=== PATIENT | male | born 1975 | race Caucasian/White ===

== ENCOUNTER 2024-10-14 12:17 | Outpatient (CLI) | payer OTHER, SELFPAY ==
--- OUTSIDE RECORDS SUMMARY | 2024-10-14 12:23 | XMS_ITS | Patient Health Record ---
Author Organization [facility] Address [address] [place], [place] [id number] Care Team Providers Care Planning Intern Name Role Phone FranciscoalineLISHA julioEMILIANAYULY Unavailable [phone] Tatianna Sow Unavailable Unavailable Reason For Referral No Information Plan Of Treatment No Information Insurance Providers Payer Name Payer Address Payer Phone Subscriber Number Group Number Insured Name Patient Relationship to Insured Coverage Start Date Coverage End Date [facility] [address] [place] [address] [id number] ALICE PAULINO Self - patient is the insured
--- NOTE | 2024-10-14 12:31 | ECG_ITS ---
Test Date: 2024-10-14 12:52:34 Measurements Intervals [place] Rate: 70 P: 15 MO: 163 QRS: 16 QRSD: 94 T: 34 QT: 378 QTc: 410 Interpretive Statements SINUS RHYTHM No previous ECG available for comparison Electronically Signed On 10-14-2024 22:15:31 CDT by Lexie Gray M.D.
[2024-10-14 13:47] LABS: INR 1.0; Prothrombin Time 13.3 Seconds (11.1-14.7)
[2024-10-14 13:57] LABS: Partial Thromboplastin Time 28.4 Seconds (22.3-36.8)
== END 2024-10-14 12:18 | disposition home or self-care (01) ==
PROVIDERS: Visit Provider Urology
DX: Z01.818 Encounter for other preprocedural examination (principal); N20.0 Calculus of kidney; I10 Essential (primary) hypertension
CPT/HCPCS: 36415; 85610; 85730; 87086; 93005

== ENCOUNTER 2024-10-18 00:19 | Day surgery (SDC) | payer OTHER, SELFPAY ==
--- NOTE | 2024-10-08 14:57 | SUR.PREOP ---
Report to the Outpatient Waiting Room, entrance under the green pavilion located off [facility], at time ___06____ on date ____10/18/24___. Planned Procedure Time: ____729____.? Time changes happen often and if your time is changed the preop area will call you the afternoon before. - You and your visitor will be asked to self-screen and do not enter if you have any COVID symptoms. Please call surgeon if you need to reschedule. - A mask is optional within the hospital at this time. Patients may have clear liquids (water, carbonated beverages, clear teas, apple juice) until 3 hours prior to surgery with a maximum of 20 ounces. - NO CLEAR LIQUIDS AFTER 0430 - No food from midnight until time of surgery and no smoking, or chewing tobacco (or any form of nicotine). No chewing gum, candy or mints. - Infants may have breast milk until 4 hours before surgery, infant formula 6 hours prior to surgery. - Children will be allowed to drink immediately following surgery.? If applicable, please bring a bottle or sippy cup to assist with drinking. Juice, water, soda, and popsicles are readily available.? For infants on formula, please bring formula the day of surgery.? Pacifiers are allowed. Take only the following medications with a SIP of water on the morning of surgery: N/A DO NOT STOP ANY OF YOUR OTHER PRESCRIPTION MEDICATIONS PRIOR TO SURGERY EXCEPT THE FOLLOWING Hold all vitamins and supplements for 3 days per anesthesiologist. Medications to discontinue per physician N/A Date to take last dose Please no make-up, nail malagasy, hairspray, perfume, deodorant, or body powder the day of surgery.? No jewelry (including any body piercings) or valuables the day of surgery, leave them at home.? Please take a shower or bath the night before, or the morning of, surgery with an antibacterial soap.? Wear comfortable, loose fitting clothing.? Children are encouraged to wear pajamas. - Jewelry must be removed prior to entering the operating room.? Rings and piercings that are not removed may be cut off. - The hospital will not accept responsibility for valuables.? - Please leave all valuables, including medications, at home the day of surgery. If you are going home after surgery, a licensed tour driver must drive you home.? - NO public transportation without another adult if you receive anesthesia. - We recommend that an adult stay with you for 24 hours following discharge. - We also recommend that you do not drive, make important decision, drink alcoholic beverages, or take any drugs that were not prescribed by your health care provider for at least 24 hours after your discharge time. For Pediatric surgeries, we recommend two adults accompany the child home. Follow any additional instructions given to you from your surgeon. Telephone instructions given to ALICE PAULINO and asked if any additional questions and then verbalized understanding. Patient advised to call surgeon office or pre surgery nurse liaison [phone] if any additional questions.
[2024-10-08 15:30] VITALS: BMI 40.0
--- NOTE | ~2024-10-18 | XR_ITS ---
Exam: Abdomen 1V HISTORY: LEFT SIDE STONE PRE LITHO COMPARISON: None TECHNIQUE: Supine images of the abdomen FINDINGS: Bowel gas pattern is non-obstructive. There is no free air or deep sulci. Multiple calcifications are seen, projecting over the bilateral kidneys. 3.5 mm, projecting to the right of midline. 8.6 mm, projecting over the upper pole of the left kidney. 9.4 mm, projecting over the interpolar region of the left kidney. 8.9 mm, projecting over the interpolar region to lower pole of the left kidney. 22 mm, projecting to the right of midline, likely within the gallbladder. Visualized portions of the lung bases are unremarkable. Bones and soft tissues are unremarkable. IMPRESSION: Nonspecific, nonobstructive bowel gas pattern. Multiple stones projecting over the bilateral kidneys, as detailed above. Reviewed, dictated and finalized at location A.
--- OUTSIDE RECORDS SUMMARY | 2024-10-18 00:21 | XMS_ITS | Patient Health Record ---
Author Organization [facility] Address [address] [place], [place] [id number] Care Team Providers Care Neonatal Doctor Name Role Phone FranciscoalineLISHA julioEMILIANAYULY Unavailable Tatianna Sow Unavailable Unavailable Reason For Referral No Information Plan Of Treatment No Information Insurance Providers Payer Name Payer Address Payer Phone Subscriber Number Group Number Insured Name Patient Relationship to Insured Coverage Start Date Coverage End Date [facility] [address] [place] [address] [id number] ALICE PAULINO Self - patient is the insured
--- OUTSIDE RECORDS SUMMARY | 2024-10-18 00:21 | XMS_ITS | Patient Health Record ---
Author Organization [facility] Address [address] [facility] [address] [place], [place] [id number] Support Name Relationship Address Phone ALICE PAULINO Guarantor Unknown [phone] Reason For Referral No Information Plan Of Treatment No Information
[2024-10-18 06:20] VITALS: BP 129/67; PULSE 67; RESP 18; TEMP 36.9; O2SAT 98
--- NOTE | 2024-10-18 06:50 | WPDANESEPPF ---
Anes - Initial Pre Proc Eval Procedure: Operation Date: 10/18/24 07:30 Proposed Procedures p Left Extracorporeal Shock Wave Lithotripsy - Cecilio Dawkins MD Date/Time: 10/18/24 06:50 Surgeon: Cecilio Dawkins MD Pre Op Diagnosis: left renal stone Patient Data Age: 49 Gender: M Height: 1.91 m Weight: 153.5 kg Last Vital Signs Temp 36.9 C 10/18/24 06:20 Pulse 67 10/18/24 06:20 Resp 18 10/18/24 06:20 BP 129/67 10/18/24 06:20 Pulse Ox 98 10/18/24 06:20 O2 Del Method Room Air 10/18/24 06:20 Allergies Allergy/AdvReac Type Severity Reaction Status Date / Time No Known Allergies Allergy Unverified 10/18/24 06:12 Home Medications ?Medication ?Instructions ?Recorded ?Confirmed ?Type atorvastatin 40 mg tablet 40 mg PO QPM 10/08/24 10/18/24 History lisinopril 20 mg tablet 20 mg PO QHS 10/08/24 10/18/24 History Patient hx anesthesia problems: none Family hx anesthesia problems: none Results Review: All pre-operative results and documents have been reviewed as part of the pre-operative evaluation. [facility] Past Medical History Medical History (Updated 10/18/24 @ 06:51 by Carloz Adkins MD) HTN (hypertension) Morbid obesity Surgical History Surgical History (Updated 10/18/24 @ 06:51 by Carloz Adkins MD) S/P gastric sleeve procedure Social History Social History Smoking status: Never smoker Alcohol intake: current Living arrangements: with family Spiritual care concerns: No Anes - Eval Final PreProcedure Day of Procedure 10/18/24 06:50 Patient weight: morbidly obese Heart: regular rate and rhythm Lungs: clear to auscultation Airway: Mallampati scale class II Neurological: alert and oriented Last oral intake: >/= 8 hours ASA classification: III Emergent: no Anesthetic plan: proceed Anesthesia type and monitoring: general LMA and standard monitoring Results Review: All pre-operative results and documents have been reviewed as part of the pre-operative evaluation. Informed Consent: The patient's anesthetic plan and its attendant risks and benefits were discussed with the patient/family/POA. Questions were solicited and answers provided to the satisfaction of the patient/family/POA.
--- NOTE | 2024-10-18 07:16 | PM.IMHP ---
H&P: HPI History of Present Illness Date/Time: 10/18/24 07:16 Chief Complaint: left renal calculus Narrative: 49 yr old male with left renal calculi here for lithotripsy. Review of Systems Review of Systems: All systems reviewed & are unremarkable except as noted in HPI and below PMFSH Past Medical History Medical History (Updated 10/18/24 @ 07:18 by Cecilio Dawkins MD) HTN (hypertension) Morbid obesity Surgical History Surgical History (Updated 10/18/24 @ 06:51 by Carloz Adkins MD) S/P gastric sleeve procedure Social History Social History Smoking status: Never smoker Alcohol intake: current Living arrangements: with family Spiritual care concerns: No Meds Home Medications and Allergies Home Medications ?Medication ?Instructions ?Recorded ?Confirmed ?Type atorvastatin 40 mg tablet 40 mg PO QPM 10/08/24 10/18/24 History lisinopril 20 mg tablet 20 mg PO QHS 10/08/24 10/18/24 History Allergies Allergy/AdvReac Type Severity Reaction Status Date / Time No Known Allergies Allergy Unverified 10/18/24 06:12 Vital Signs Vital Signs - 24 hr 10/18/24 06:20 Temperature 36.9 C Pulse Rate 67 Respiratory Rate 18 Blood Pressure 129/67 Pulse Oximetry 98 Oxygen Delivery Room Air Assessment and Plan Assessment and plan (1) Left renal stone: Code(s): N20.0 - Calculus of kidney Status: Acute Assessment and Plan: eswl of left renal calculus
--- NOTE | 2024-10-18 07:18 | WPDHPUPDATE1 ---
History and Physical Update Update Date/Time: 10/18/24 07:18 History and Physical has been reviewed, including an updated exam of the patient. There are NO changes in the patient's condition. Risks, benefits, and alternatives have been discussed and questions answered. Patient agrees to proceed with procedure.
[2024-10-18] MEDS: ceFAZolin 3 GM/D5W 100 ML 100 ML IVPB (07:25)
--- NOTE | 2024-10-18 08:09 | W.PM.PROC2 ---
Procedure Note - Detailed Date of Procedure 10/18/24 Pre-op Diagnosis left renal stone Post-op Diagnosis Same Procedure Performed Lithotripsy of left renal calculi Surgeon Cecilio Dawkins MD Anesthesia General Description of Procedure Patient was taken the OR correctly identified. Once anesthesia was obtained the stone in the left renal kidney was localized. Two thousand five hundred shocks were given the stone. There appeared to be good fragmentation. He was taken recovery stable condition. He will follow-up in 7-10 days with KUB. This completes dictation. Please send a copy of op note to my office Estimated Blood Loss 0 Drains No Packing No Pathology None sent Complications No immediate complications Condition Stable Disposition PACU
[2024-10-18 08:13] VITALS: BP 112/67; PULSE 80; RESP 12; TEMP 36.1; O2SAT 95
[2024-10-18] MEDS: LACTATED RINGERS 1,000 ML 30 ML IV CONT (08:13)
[2024-10-18 08:25] VITALS: BP 113/66; PULSE 76; RESP 16; O2SAT 99
[2024-10-18 08:40] VITALS: BP 118/74; PULSE 80; RESP 18; O2SAT 95
[2024-10-18 08:48] VITALS: BP 126/72; PULSE 76; RESP 18
[2024-10-18 09:15] VITALS: BP 132/77; PULSE 67; RESP 18
== END 2024-10-18 09:28 | disposition home or self-care (01) ==
PROVIDERS: Visit Provider Urology
PROC: (CPT 50590; principal; 2024-10-18 07:30)
DX: N20.0 Calculus of kidney (principal)
CPT/HCPCS: 50590; 74018; J0690; J1100; J2250; J2405; J2704; J3010; J7120

== ENCOUNTER 2024-10-24 13:32 | Outpatient (CLI) | payer OTHER, SELFPAY ==
--- NOTE | ~2024-10-24 | XR_ITS ---
XR abdomen/kub 1V 10/24/2024 13:44 Indication: Renal stones Procedure: KUB Comparison: 10/18/2024 Findings: There are bilateral renal stones. There are gallstones. Nonobstructive bowel gas pattern. T here is mild lower thoracic and lumbar spondylosis. Impression: 1: Bilateral nephrolithiasis. 2: Cholelithiasis. Reviewed, dictated and finalized at location B. Impression: 1: Bilateral nephrolithiasis. 2: Cholelithiasis.
--- OUTSIDE RECORDS SUMMARY | 2024-10-24 13:36 | XMS_ITS | Encounter Summary ---
Author Organization [facility] Address [address] [place] [address] Care Team Providers Care Quality Improvement Manager Name Role Phone Cj Sow MD Primary Care Provider [phone] Cj Sow MD Primary Care Provider [phone] Cj Sow MD Primary Care Provider [phone] Cj Sow MD Primary Care Provider [phone] Cj Sow MD Primary Care Provider [phone] Cj Sow MD Primary Care Provider [phone] Cj Sow MD Primary Care Provider [phone] Cj Sow MD Primary Care Provider [phone] Cj Sow MD Primary Care Provider [phone] Cj Sow MD Primary Care Provider [phone] [place] Mills [facility] Primary Care Provider [phone] Juan Daniel Dodd DO Primary Care Provider Diane Mcneil [facility] Primary Care Provider + Encounter Details Date Type Department Care Team (Late st Contact Info) Description 07/02/2001 Abstract [facility] Conversion , Generic Conversion, Social History Tobacco Use Types Packs/Day Years Used Date Smoking Tobacco: Never Assessed Sex and Gender Information Value Date Recorded Sex Assigned at Male 06/14/2024 6:09 AM AIR INTELLIGENCE OFFICER Legal Sex Male 4:12 PM CDT Gender Identity Male 04/20/2021 11:54 AM AIR INTELLIGENCE OFFICER Sexual Orientation Straight 04/20/2021 11 :54 AM AIR INTELLIGENCE OFFICER documented as of this encounter Plan of Treatment Not on file documented as of this encounter Visit Diagnoses Not on filedocumented in this encounter Care Teams Quality Improvement Manager Relationship Specialty Start Date End Date Cj Sow MD [address] [place] [address] PCP - General 06/10/16 07/30/18 Cj Sow MD [address] [place] [address] PCP - General 03/11/16 06/09/16 Cj Sow MD [address] [place] [address] PCP - General 02/22/16 03/10/16 Cj Sow MD [address] [place] [address] PCP - General 01/14/16 02/21/16 Cj Sow MD [address] [place] [address] PCP - General 12/31/15 01/13/16 Cj Sow MD [address] [place] [address] PCP - General 12/21/15 12/30/15 Cj Sow MD [address] [place] [address] PCP - General 12/08/15 12/20/15 Cj Sow MD [address] [place] [address] PCP - General 11/30/15 12/07/15 Cj Sow MD [address] [place] [address] PCP - General 11/27/15 11/29/15 Cj Sow MD [address] [place] [address] PCP - General 11/12/15 11/26/15 Eugene Mills FNP [address] [place] [address] PCP - General NURSE PRACTITIONER 07/31/18 01/17/21 Juan Daniel Dodd DO [address] [place] [address] PCP - General FAMILY PRACTICE 01/18/21 05/19/22 Diane Mcneil, AUTO REFINISHER- [address] [place] [address] PCP - General NURSE PRACTITIONER 05/20/22 documented as of this encounter
--- OUTSIDE RECORDS SUMMARY | 2024-10-24 13:36 | XMS_ITS | Encounter Summary ---
Author Organization [facility] Address [facility] [place] [address] Care Team Providers Care Manager Membership Name Role Phone Cj Sow MD Primary Care Provider [phone] Eugene Mills [facility] Primary Care Provider [phone] Juan Daniel Dodd DO Primary Care Provider Diane Mcneil [facility] Primary Care Provider + Encounter Details Date Type Department Care Team (Late st Contact Info) Description 06/07/2017 Abstract [facility] Clin[facility] Conversion Dominic Rosenbaum MD [address] [place] [address] Social History Tobacco Use Types Packs/Day Years Used Date Smoking Tobacco: Never Assessed Sex and Gender Information Value Date Recorded Sex Assigned at Male 06/14/2024 6:09 AM INSURANCE CLAIMS ASSISTANT Legal Sex Male 4:12 PM CDT Gender Identity Male 04/20/2021 11:54 AM INSURANCE CLAIMS ASSISTANT Sexual Orientation Straight 04/20/2021 11 :54 AM INSURANCE CLAIMS ASSISTANT documented as of this encounter Miscellaneous Notes * Letter - Dominic Rosenbaum MD - 06/07/2017 12:00 AM CST 06-07-2017 Almas Iglesias [address] [place] [address] : 1975 Lab Order: CMP; Lipid Panel E78.5: Hyperlipidemia, unspecified Normal [x] Stat [] Fasting Electronically Signed By: Dominic Rosenbaum MD RANCE CLAIMS ASSISTANT documented in this encounter Plan of Treatment Not on file documented as of this encounter Visit Diagnoses Not on filedocumented in this encounter Care Teams Manager Membership Relationship Specialty Start Date End Date Cj Sow MD [address] [place] [address] PCP - General 06/10/16 07/30/18 Eugene Mills FNP [address] [facility] [address] [place] [address] PCP - General NURSE PRACTITIONER 07/31/18 01/17/21 Juan Daniel Dodd DO [address] [facility] [address] [place] [address] PCP - General FAMILY PRACTICE 01/18/21 05/19/22 Diane Mcneil FNP- [address] [place], [place] [id number] PCP - General NURSE PRACTITIONER 05/20/22 documented as of this encounter
--- OUTSIDE RECORDS SUMMARY | 2024-10-24 13:36 | XMS_ITS | Clinical Summary ---
Author Organization [facility] Address [address] [place] [address] Care Team Providers Care Inspector Dials Name Role Phone Diane Mcneil [facility] Primary Care Provider + Allergies Active Allergy Reactions Criticality Noted Date Comments Seasonal Unknown 06/19/2017 Medications Multiple Vitamin (MULTIVITAMIN ADULT OR) Take by mouth daily. Active lisinopril (PRINIVIL) 20 MG tabletIndications:E ssential hypertension Take 1 tablet (20 mg total) by mouth daily. 90 tablet 2 4 Active atorvastatin (LIPITOR) 40 MG tabletIndications:H yperlipidemia, unspecified hyperlipidemia type Take 1 tablet (40 mg total) by mouth daily. 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 Kidney stones 11/12/2015 Obesity 05/12/2014 Asthma (HHS/HCC) 03/05/2012 Other and unspecified hyperlipidemia 03/05/2012 Resolved Problems Problem Noted Date Diagnosed Date Resolved Date Screening for colon cancer 07/13/2023 0 07/17/2023 Screening for colon cancer 07/13/2023 0 08/21/2023 Screening for colon cancer 07/13/2023 0 09/18/2023 Acute gout 09/30/2015 09/11/2020 Encounters Date Type Department Care Team Description 08/26/2024 6:47 AM CDT - 08/26/2024 11:59 PM CDT Hospital Encounter [facility] [address] [place] [address] Cecliio Dawkins MD Discharge Disposition: Home or Self Care (Routine Discharge) 08/26/2024 Travel from Last 3 Months Immunizations Immunization Administration Dates Next Due Dtap/Hep B/Ipv 11/13/1981, 8,11/17/1976,1976,06/02/1976 Fluzone Adult - >Age 3 (Pref illed Syringe) 04/23/2019(Deferred: Patient Refused) Hepatitis B 09/04/1998,01/02/1998,11/14/1997 DEEPA ([employer]) COVID-19 AD26 VACCINE 0.5 ML IM SUSP 11/06/2020 MMR (Generic) 09/27/1977 Opv 11/01/1983, 8,11/17/1976,1976,06/02/1976 Td 11/01/1983 Tdap (Generic) 10/22/2007 Family History Medical History Relation Comments Hypertension Brother No Known Problems Father No Known Problems Maternal Aunt [place] Maternal Grandfather No Known Problems Maternal Grandmother No Known Problems Maternal Uncle Breast Cancer Mother Hypertension Mother No Known Problems Paternal Aunt Lung Cancer Paternal Grandfather smoker No Known Problems Paternal Grandmother No Known Problems Paternal Uncle PKU Son Relation Status Comments Brother Alive Father Alive Maternal Aunt Maternal Grandfather Maternal Grandmother Maternal Uncle Mother Paternal Aunt Paternal Grandfather Paternal Grandmother Paternal Uncle Son Alive Social History Tobacco Use Types Packs/Day Years Used Date Smoking Tobacco: Never Smokeless Tobacco: Never Tobacco Cessation:Counseling Given: No Comments:non smoker Alcohol Use Standard Drinks/Week Comments Yes 10 (1 standard drink = 0.6 oz pu re alcohol) AUDIT-C Answer Date Recorded Frequency of Alcohol Consumption Never 08/10/2018 Average Number of Drinks Not on file 019 Frequency of Binge Drinking Not on file 06/2018 PHQ-2 Answer Date Recorded Patient Health Questionnaire-2 Score 0 03/26/2024 Sex and Gender Information Value Date Recorded Sex Assigned at Male 06/14/2024 6:09 AM RELIABILITY TECHNICIAN Legal Sex Male 4:12 PM CDT Gender Identity Male 04/20/2021 11:54 AM RELIABILITY TECHNICIAN Sexual Orientation Straight 04/20/2021 11 :54 AM RELIABILITY TECHNICIAN Last Filed Vital Signs Vital Sign Reading Time Taken Comments Blood Pressure 132/78 03/26/2024 3:45 PM RELIABILITY TECHNICIAN Pulse 57 03/26/2024 3:45 PM RELIABILITY TECHNICIAN Temperature 36.3 C (97.3 F) 03/26/2024 3:45 PM RELIABILITY TECHNICIAN Respiratory Rate 18 03/26/2024 3:45 PM RELIABILITY TECHNICIAN Oxygen Saturation 99% 03/26/2024 3:45 PM RELIABILITY TECHNICIAN Inhaled Oxygen Concentration - - Weight 155.3 kg (342 lb 6.4 oz) 03/26/2024 3:45 PM RELIABILITY TECHNICIAN Height 188 cm (6' 2) 03/26/2024 3:45 PM RELIABILITY TECHNICIAN Body Mass Index 43.96 03/26/2024 3:45 PM RELIABILITY TECHNICIAN Plan of Treatment Health Maintenance Due Date Last Done Comments Pneumococcal Vaccine: 50+ Years (1 of 2 - PCV) 1993 DTaP, Tdap and Td Vaccines (6 - Td or Tdap) 10/21/2017 10/22/2007, 11/01/1983, 11/13/1981, Additional history exists COVID-19 Vaccine (2 - season) 2023 11/06/2020 Zoster Vaccines (1 of 2) 01/25/2024 PHQ-2 (Physician [place]) 04/10/2024 03/26/2024 Annual Physical 07/05/2024 07/06/2023, 05/11, 04/16/2021 Colorectal Cancer Screening Colonoscopy (10 Years) 09/18/2033 09/19/2023, 09/19/2023, 09/19/2023 Hepatitis B Vaccines Completed 09/04/1998, 01/02/1998, 11/14/1997, Additional history exists Hepatitis C Completed 06/01/2022 Meningococcal B Vaccine Aged Out No l onger eligible based on patient's age to complete this topic Meningococcal Vaccine Aged Out No adrian skinny eligible based on patient's age to complete this topic RSV Immunizations Under 20 Months Aged Out No longer eligible based on patient's age to complete this topic Procedures Procedure Name Priority Date/Time Associated Diagnosis Comments CT ABD+PEL WO CON Routine 08/26/2024 7:0 1 AM CDT Calculus of kidney XR ABD KUB Routine 08/26/2024 7:00 AM CDT Kidney stone COLONOSCOPY Routine 09/19/2023 9:51 AM CDT HEPATITIS C ANTIBODY Routine 06/01/2022 2:00 PM RELIABILITY TECHNICIAN Need for hepatitis C screening test from Last 3 Months or Most Recently Relevant to Health Maintenance Results * CT ABD+PEL WO CON (08/26/2024 7:01 AM CDT) Anatomical Region Laterality Modality Abdomen Computed Tomogra phy 08/29/2024 9:15 AM CDT Impressions 08/29/2024 9:24 AM CDT IMPRESSION: 1. Nonobstructive nephrolithiasis bilaterally with a mild calculus burden as above. 2. Additional chronic/subtle findings as above. Ordered By: CECILIO DAWKINS Interpreted By: Todd Tilley, 08/29/2024 9:15 AM Narrative 08/29/2024 9:24 [place] [address] EXAMINATION: CT ABD+PEL WO CON INDICATIONS: Calculus of kidney COMPARISON: 10/30/2015 TECHNIQUE: Contiguous unenhanced axial CT images through the abdomen and pelvis with coronal and sagittal reformats. A dose lowering technique was used for this procedure, which may include, but is not limited to, dose reduction technique, automated exposure control, the use of iterative reconstruction, and ALARA (As Low As Reasonably Achievable) / Image Gently techniques. FINDINGS: No consolidation, effusion, or suspicious pulmonary nodule within the visualized lung bases. Heart size is normal. No pericardial effusion. 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 Lack of intravenous contrast limits evaluation of the abdominopelvic viscera and vasculature. Symmetric and uniform renal cortical attenuation with minimal symmetric and likely senescent perinephric stranding bilaterally Nonobstructive nephrolithiasis bilaterally with 2 subcentimeter right and 3 nonobstructive left renal calculi. 2 dominant clustered calculi within the left interpolar pelvis 11 mm in long axis and 4 mm in short axis measuring up to 11 mm in long axis. No obstructing calculus or hydronephrosis. No discrete renal mass. The ureters are normal in caliber without intraluminal calculus. Smooth urinary bladder distention without focal wall thickening, perivesicular stranding, or intraluminal calculus. The prostate and seminal vesicles are within normal limits. The liver, spleen, pancreas, and adrenal glands are normal in morphology and homogenous in attenuation without suspicious lesion. Multiple calcified splenic and to lesser extent hepatic granulomata. Smooth gallbladder distention with few dependent subcentimeter layering intraluminal calculi. No pericholecystic inflammatory changes or evident gallbladder wall thickening. No pancreaticobiliary duct dilatation or peripancreatic inflammatory stranding. The gastrointestinal tract is normal in caliber without discrete bowel wall thickening. The appendix and terminal ileum are within normal limits. Scattered colonic diverticula. No ascites or pneumoperitoneum. No mesenteric or retroperitoneal adenopathy. Minimal atherosclerotic calcification of the abdominal aorta. The aorta and IVC are normal in caliber. Tiny fat-containing umbilical hernia. No suspicious superficial soft tissue mass or fluid collection. Mild multilevel spondylosis and discogenic disease, most advanced at L5-S1. No acute or aggressive osseous lesion. Procedure Note Todd Tilley MD - 08/29/2024 [facility] [address] [place] [address] EXAMINATION: CT ABD+PEL WO CON INDICATIONS: Calculus of kidney COMPARISON: 10/30/2015 TECHNIQUE: Contiguous unenhanced axial CT images through the abdomen andpelvis with coronal and sagittal reformats. A dose lowering technique was used for this procedure, which may include,but is not limited to, dose reduction technique, automated exposurecontrol, the use of iterative reconstruction, and ALARA (As Low AsReasonably Achievable) / Image Gently techniques. FINDINGS: No consolidation, effusion, or suspicious pulmonary nodule within thevisualized lung bases. Heart size is normal. No pericardial effusion. 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 Lack of intravenous contrast limits evaluation of the abdominopelvicviscera and vasculature. Symmetric and uniform renal cortical attenuation with minimal symmetricand likely senescent perinephric stranding bilaterally Nonobstructivenephrolithiasis bilaterally with 2 subcentimeter right and 3nonobstructive left renal calculi. 2 dominant clustered calculi within the left interpolar pelvis 11 mm inlong axis and 4 mm in short axis measuring up to 11 mm in long axis. No obstructing calculus or hydronephrosis. No discrete renal mass. The ureters are normal in caliber without intraluminal calculus. Smooth urinary bladder distention without focal wall thickening,perivesicular stranding, or intraluminal calculus. The prostate and seminal vesicles are within normal limits. The liver, spleen, pancreas, and adrenal glands are normal in morphologyand homogenous in attenuation without suspicious lesion. Multiple calcified splenic and to lesser extent hepatic granulomata. Smooth gallbladder distention with few dependent subcentimeter layeringintraluminal calculi. No pericholecystic inflammatory changes or evident gallbladder wallthickening. No pancreaticobiliary duct dilatation or peripancreatic inflammatorystranding. The gastrointestinal tract is normal in caliber without discrete bowelwall thickening. The appendix and terminal ileum are within normal limits. Scattered colonic diverticula. No ascites or pneumoperitoneum. No mesenteric or retroperitoneal adenopathy. Minimal atherosclerotic calcification of the abdominal aorta. The aorta and IVC are normal in caliber. Tiny fat-containing umbilical hernia. No suspicious superficial soft tissue mass or fluid collection. Mild multilevel spondylosis and discogenic disease, most advanced atL5-S1. No acute or aggressive osseous lesion. IMPRESSION: 1. Nonobstructive nephrolithiasis bilaterally with a mild calculus burdenas above. 2. Additional chronic/subtle findings as above. Ordered By: CECILIO DAWKINS Interpreted By: Todd Tilley, 08/29/2024 9:15 AM us Cecilio Dawkins MD CT Final Re sult * XR ABD KUB (08/26/2024 7:00 AM CDT) Anatomical Region Laterality Modality Abdomen Radiographic Mer ging 08/29/2024 8:54 AM CDT Impressions 08/29/2024 8:57 AM CDT IMPRESSION: 1. Multiple bilateral renal stones measuring up to 9 mm, left greater than right. 2. Cholelithiasis. 3. There is a moderate fecal burden within the colon,, which can be seen with constipation. Ordered By: CECILIO DAWKINS Interpreted By: Pooja Benitez MD, 08/29/2024 8:54 AM Narrative 08/29/2024 8:57 [place] [address] PROCEDURE: XR ABD KUB HISTORY: Renal cyst TECHNIQUE: Supine image(s) of the abdomen and pelvis were obtained on 06/14/2024 at 0636 hours. COMPARISON: CT abdomen and pelvis without contrast, 08/26/2024 FINDINGS: LINES OR TUBES: None LUNG BASES: Unremarkable. BOWEL GAS PATTERN: There are no abnormally dilated loops of bowel. Moderate fecal burden is seen within the colon FREE AIR: No free air is detected on this supine exam. CALCIFICATIONS/OTHER: Multiple bilateral renal stones measuring up to 9 mm, left greater than greater than right MUSCULOSKELETAL: Degenerative changes are seen in the visualized portions of the spine. Bilateral hip degenerative changes. Procedure Note Pooja Benitez MD - 08/29/2024 [place] [id number] PROCEDURE: XR ABD KUB HISTORY: Renal cyst TECHNIQUE: Supine image(s) of the abdomen and pelvis were obtained on06/14/2024 at 0636 hours. COMPARISON: CT abdomen and pelvis without contrast, 08/26/2024 FINDINGS: LINES OR TUBES: None LUNG BASES: Unremarkable. BOWEL GAS PATTERN: There are no abnormally dilated loops of bowel.Moderate fecal burden is seen within the colon FREE AIR: No free air is detected on this supine exam. CALCIFICATIONS/OTHER: Multiple bilateral renal stones measuring up to 9mm, left greater than greater than right MUSCULOSKELETAL: Degenerative changes are seen in the visualized portionsof the spine. Bilateral hip degenerative changes. IMPRESSION: 1. Multiple bilateral renal stones measuring up to 9 mm, left greaterthan right. 2. Cholelithiasis. 3. There is a moderate fecal burden within the colon,, which can be seenwith constipation. Ordered By: CECILIO DAWKINS Interpreted By: Pooja Benitez MD, 08/29/2024 8:54 AM Cecilio Dawkins MD GENERAL IMAGING Final Re sult * HEPATITIS C ANTIBODY (06/01/2022 2:00 PM RELIABILITY TECHNICIAN) HEPATITIS C AB NON-REACTI VE NON-REACTI VE 06/01/2022 8:54 PM RELIABILITY TECHNICIAN [facility] 06/01/2022 2:00 PM RELIABILITY TECHNICIAN Diane PEGUERO- LABORATORY Final Re sult [facility] [address] [place] [address], from Last 3 Months or Most Recently Relevant to Health Maintenance Insurance [facility] Care Teams Inspector Dials Relationship Specialty Start Date End Date Diane Mcneil FNP-JOEL [address] [address] PCP - General NURSE PRACTITIONER 05/20/22
--- OUTSIDE RECORDS SUMMARY | 2024-10-24 13:36 | XMS_ITS | Encounter Summary ---
Author Organization [facility] Address [address] [place] [address] Care Team Providers Care Chief Wheelage Clerk Name Role Phone TarunDiane ferrer [facility] Primary Care Provider + Encounter Details Date Type Department Care Team (Late st Contact Info) Description 10/05/2022 MyChart Message Enc [facility] - [facility] [address] [place], [place] [id number] RateElert, [facility] Provider Air Quality Message Social History Tobacco Use Types Packs/Day Years Used Date Smoking Tobacco: Never Smokeless Tobacco: Never Comments:non smoker Alcohol Use Standard Drinks/Week Comments Yes 0 (1 standard drink = 0.6 oz pur e alcohol) AUDIT-C Answer Date Recorded Frequency of Alcohol Consumption Never 08/10/2018 Average Number of Drinks Not on file 019 Frequency of Binge Drinking Not on file 06/2018 PHQ-2 Answer Date Recorded Patient Health Questionnaire-2 Score 0 05/20/2022 Sex and Gender Information Value Date Recorded Sex Assigned at Male 06/14/2024 6:09 AM SOCIAL MEDIA DEVELOPER Legal Sex Male 4:12 PM CDT Gender Identity Male 04/20/2021 11:54 AM SOCIAL MEDIA DEVELOPER Sexual Orientation Straight 04/20/2021 11 :54 AM SOCIAL MEDIA DEVELOPER documented as of this encounter Plan of Treatment Not on file documented as of this encounter Visit Diagnoses Not on filedocumented in this encounter Additional Health Concerns Assessment Noted Time PHQ-9 Depression Total Score: 0 05/28/19 7:51 AM SOCIAL MEDIA DEVELOPER documented as of this encounter Care Teams Chief Wheelage Clerk Relationship Specialty Start Date End Date Diane Mcneil, PHARMACOGNOSY TEACHER- [address] [address] PCP - General NURSE PRACTITIONER 05/20/22 documented as of this encounter
--- OUTSIDE RECORDS SUMMARY | 2024-10-24 13:36 | XMS_ITS | Encounter Summary ---
Author Organization [facility] Address [address] [place] [address] Care Team Providers Care Counter Server Name Role Phone WorkmanJuan Daniel Primary Care Provider Diane Mcneil [facility] Primary Care Provider + Encounter Details Date Type Department Care Team (Late st Contact Info) Description 06/15/2021 [email or web address] Message Enc [facility] Medical [facility]ty [facility] - [address], [address] [place] [address] Tã Em Bé, [facility] Provider Reschedule Social History Tobacco Use Types Packs/Day Years Used Date Smoking Tobacco: Never Smokeless Tobacco: Never Alcohol Use Standard Drinks/Week Comments Yes 0 (1 standard drink = 0.6 oz pur e alcohol) AUDIT-C Answer Date Recorded Frequency of Alcohol Consumption Never 08/10/2018 Average Number of Drinks Not on file 019 Frequency of Binge Drinking Not on file 06/2018 PHQ-2 Answer Date Recorded PHQ-2 Score - If the patient scores above 3, please move on to questions 3-9 0 05/28/2021 Sex and Gender Information Value Date Recorded Sex Assigned at Male 06/14/2024 6:09 AM GAME SHOW HOST Legal Sex Male 4:12 PM CDT Gender Identity Male 04/20/2021 11:54 AM GAME SHOW HOST Sexual Orientation Straight 04/20/2021 11 :54 AM GAME SHOW HOST COVID-19 Exposure Response Date Recorded In the last 10 days, have yo u been in contact with someone who was confirmed or suspected to have Coronavirus/COVID-19? No / Unsure 05/28/2021 7:39 AM GAME SHOW HOST documented as of this encounter Plan of Treatment Not on file documented as of this encounter Visit Diagnoses Not on filedocumented in this encounter Additional Health Concerns Assessment Noted Time PHQ-9 Depression Total Score: 0 05/28/19 7:51 AM GAME SHOW HOST documented as of this encounter Care Teams Counter Server Relationship Specialty Start Date End Date Juan Daniel Dodd DO PCP - General FAMILY PRACTICE 01/18/21 05/19/22 Diane Mcneil, FAST FOOD FRY COOK-BC [address] [address] PCP - General NURSE PRACTITIONER 05/20/22 documented as of this encounter
--- OUTSIDE RECORDS SUMMARY | 2024-10-24 13:36 | XMS_ITS | Patient Health Record ---
Author Organization [facility] Address [address] [facility] [address] [place], [place] [id number] Support Name Relationship Address Phone ALICE PAULINO Guarantor Unknown [phone] Reason For Referral No Information Plan Of Treatment No Information
--- OUTSIDE RECORDS SUMMARY | 2024-10-24 13:36 | XMS_ITS | Encounter Summary ---
Author Organization [facility] Address [address] [place] [address] Care Team Providers Care Science Professor Name Role Phone LinaEugene weaver [facility] Primary Care Provider [phone] Juan Daniel Dodd DO Primary Care Provider Diane Mcneil [facility] Primary Care Provider + Encounter Details Date Type Department Care Team (Late st Contact Info) Description 09/15/2018 Abstract [facility] CONVERSION [address] [place] [address] , Lida Colón MD Social History Tobacco Use Types Packs/Day Years Used Date Smoking Tobacco: Never Smokeless Tobacco: Never Alcohol Use Standard Drinks/Week Comments No 0 (1 standard drink = 0.6 oz pur e alcohol) AUDIT-C Answer Date Recorded Frequency of Alcohol Consumption Never 08/10/2018 Average Number of Drinks Not on file 019 Frequency of Binge Drinking Not on file 06/2018 Sex and Gender Information Value Date Recorded Sex Assigned at Male 06/14/2024 6:09 AM HOUSE MOVER Legal Sex Male 4:12 PM CDT Gender Identity Male 04/20/2021 11:54 AM HOUSE MOVER Sexual Orientation Straight 04/20/2021 11 :54 AM HOUSE MOVER documented as of this encounter Plan of Treatment Not on file documented as of this encounter Visit Diagnoses Not on filedocumented in this encounter Care Teams Science Professor Relationship Specialty Start Date End Date Eugene Mills FNP [address] [place] [address] PCP - General NURSE PRACTITIONER 07/31/18 01/17/21 Juan Daniel Dodd DO [address] [place] [address] PCP - General FAMILY PRACTICE 01/18/21 05/19/22 Diane Mcneil, SALES CONSULTANT INSURANCE- [address] [place] [address] PCP - General NURSE PRACTITIONER 05/20/22 documented as of this encounter
== END 2024-10-24 13:33 | disposition home or self-care (01) ==
PROVIDERS: Visit Provider Urology
DX: N20.0 Calculus of kidney (principal); K80.20 Calculus of gallbladder without cholecystitis without obstruction
CPT/HCPCS: 74018